=== PATIENT | female | born 1940 | race Two or more races ===

== ENCOUNTER 2019-01-22 15:59 | Emergency (ER) | payer SELFPAY ==
[~2019-01-22] VITALS: Ht 152.4 cm; Wt 59.0 kg
--- NOTE | 2019-01-22 16:21 | NUR ---
PT BIB Family "She was cleaning my aunts house found some chocolate marijuana afterwards was complaining of dizzy/weak/felt weird" PT IS AAOX3, NOT IN RESPIRATORY DISTRESS, HOOKED TO [employer], KEPT RESTED AND COMFORTABLE, WILL CONTINUE TO MONITOR.
--- NOTE | 2019-01-22 16:47 | NUR ---
IV LINE ESTABLISHED, BLOOD DRAWNED AND SENT TO LAB.
[2019-01-22 16:48] LABS: BASOPHILS % (AUTO) 0.5 % (0.0-2.0); HEMATOCRIT 41 % (33-45); HEMOGLOBIN 13.7 g/dL (11.5-14.8); LYMPHOCYTES # (AUTO) 1.6 /CMM (0.8-4.8); LYMPHOCYTES % (AUTO) 36.1 % (20.0-44.0); MEAN CORPUSCULAR HGB CONC 34 g/dl (31.0-36.0); MEAN CORPUSCULAR VOLUME 92 fL (82-100); MONOCYTES # (AUTO) 0.4 /CMM (0.1-1.30); MONOCYTES % (AUTO) 9.6 % (2.0-12.0); NEUTROPHILS # (AUTO) 2.3 /CMM (1.8-8.9); NEUTROPHILS % (AUTO) 50.8 % (43.0-81.0); PLATELET COUNT (AUTO) 136 /CMM (150-450); RED BLOOD CELL COUNT(AUTO) 4.45 MIL/uL (4.0-5.2); WHITE BLOOD COUNT (AUTO) 4.6 K/uL (4.3-11.0)
[2019-01-22 16:55] LABS: CALCIUM, SERUM 8.8 mg/dL (8.5-10.1); CREATININE 0.9 mg/dL (0.6-1.3); POTASSIUM 4.1 mmol/L (3.5-5.1)
[2019-01-22] MEDS ORDERED: diphenhydrAMINE HCL 50 MG/ML VIAL ONE (16:57)
[2019-01-22] MEDS ORDERED: diphenhydrAMINE HCL 50 MG/ML VIAL IV ONE (17:00)
[2019-01-22] MEDS ORDERED: IV NS 0.9% 1,000 ML BAG IV ONE (17:00)
--- NOTE | 2019-01-22 19:21 | NUR ---
REC'D REPORT FROM ROSALIO IGNACIO FOR CHRISTIAN
--- NOTE | 2019-01-22 19:31 | NUR ---
REPORT GIVEN TO MATEUS MCPHERSON FOR CHRISTIAN.
--- NOTE | 2019-01-22 19:47 | NUR ---
PT RETURNED FROM CT
--- NOTE | 2019-01-22 19:47 | NUR ---
[facility] castellon in [facility] - 01/22/19 at 1947 by HFOX PT RETURNED FROM CT
[2019-01-22 20:19] VITALS: BP 137/88
--- NOTE | 2019-01-22 20:19 | NUR ---
Patient discharged to home in stable condition. Written and verbal after care instructions given. Patient verbalizes understanding of instruction.IV removed. Catheter intact and site benign. Pressure and 4x4 applied to site. No bleeding noted.pT ambulatory with a steady gait
== END 2019-01-22 20:19 | disposition home or self-care (01) ==
LOC: ER 16:01
DX: F12.10 Cannabis abuse, uncomplicated (principal); R42 Dizziness and giddiness; I10 Essential (primary) hypertension
CPT/HCPCS: 36415; 70450; 80048; 80305; 85025; 93005 ×2; 96361; 96374; 99284; J1200; J7030